=== PATIENT | female | born 1940 | race Caucasian/White ===

== ENCOUNTER 2024-02-12 09:34 | Emergency (ER) | payer MEDICARE, BC ==
[2024-02-12 09:42] VITALS: RESP 18
--- NOTE | 2024-02-12 10:08 | ED ---
General Adult HPI - General Chief complaint: Extremity Injury, Upper Stated complaint: L hand swelling Time Seen by Provider: 02/12/24 09:44 Source: patient, RN notes reviewed Mode of arrival: EMS Limitations: no limitations - History of Present Illness Initial comments: Patient is an 83-year-old female presenting from longterm with concern for left hand swelling. Patient cannot recall whether or not she had an injury. Patient feels she may have however is not certain. History is limited. Patient has no other areas of concern. - Related Data Allergies Allergy/AdvReac Type Severity Reaction Status Date / Time No Known Allergies Allergy Verified 02/12/24 09:41 Review of Systems ROS Statement: Those systems with pertinent positive or pertinent negative responses have been documented in the HPI. ROS Other: All systems not noted in ROS Statement are negative. Constitutional: Denies: fever Eyes: Denies: eye pain ENT: Denies: ear pain Respiratory: Denies: cough, dyspnea Cardiovascular: Denies: chest pain Gastrointestinal: Denies: abdominal pain Musculoskeletal: Reports: as per HPI Past Medical History Past Medical History: Unable to Obtain Past Surgical History: Unable to Obtain Past Psychological History: No Psychological Hx Reported Smoking Status: Never smoker Past Alcohol Use History: Unable to Obtain Past Drug Use History: Unable to Obtain General Exam Limitations: no limitations General appearance: alert, in no apparent distress Head exam: Present: normocephalic Eye exam: Present: normal appearance Neck exam: Present: normal inspection. Absent: tenderness Respiratory exam: Present: normal lung sounds bilaterally Cardiovascular Exam: Present: regular rate, normal rhythm Expanded Peripheral pulses: 2+: Radial (L) GI/Abdominal exam: Present: soft. Absent: tenderness Extremities exam: Present: other (Moderate tenderness proximal fourth metacarpal region. There is mild swelling. Distally the extremity is neurovascular intact) Back exam: Present: normal inspection Neurological exam: Present: alert. Absent: motor sensory deficit Psychiatric exam: Present: normal affect, normal mood Skin exam: Present: normal color. Absent: erythema Course Vital Signs 02/12/24 09:36 Temperature 98.0 F Pulse Rate 72 Respiratory 18 Rate Blood Pressure 144/75 O2 Sat by Pulse 95 Oximetry Medical Decision Making - Medical Decision Making Was pt. sent in by a medical professional or institution (, PA, LANGUAGE TEACHER, urgent care, hospital, or longterm...) When possible be specific @ -Patient was sent by nursing facility Did you speak to anyone other than the patient for history (EMS, parent, family, police, friend...)? What history was obtained from this source @ -No Did you review nursing and triage notes (agree or disagree)? Why? @ -I reviewed and agree with nursing and triage notes Were old charts reviewed (outside hosp., previous admission, EMS record, old EKG, old radiological studies, urgent care reports/EKG's, longterm records)? Report findings @ -Paperwork from nursing facility reviewed Differential Diagnosis (chest pain, altered mental status, abdominal pain women, abdominal pain men, vaginal bleeding, weakness, fever, dyspnea, syncope, headache, dizziness, GI bleed, back pain, seizure, CVA, palpatations, mental health, musculoskeletal)? @ -Differential Musculoskeletal Muscular strain, contusion, ligament sprain, fracture, arthritis, septic arthr itis, bursitis, cellulitis, muscle spasm, nerve compression, DVT, arterial occlusion, herpes zoster, electrolyte abnormality, tumor.... This is not meant to be in all inclusive list EKG interpreted by me (3pts min.). @ -As above X-rays interpreted by me (1pt min.). @ -X-ray left wrist and left hand reveal no acute abnormality CT interpreted by me (1pt min.). @ -None done U/S interpreted by me (1pt. min.). @ -None done What testing was considered but not performed or refused? (CT, X-rays, U/S, labs)? Why? @ -None What meds were considered but not given or refused? Why? @ -None Did you discuss the management of the patient with other professionals (professionals i.e. , PA, LANGUAGE TEACHER, lab, RT, psych nurse, social work administrator, truck driver supervisor, teacher, credit review officer, case supervisor)? Give summary @ -No Was smoking cessation discussed for >3mins.? @ -No Was critical care preformed (if so, how long)? @ -No Were there social determinants of health that impacted care today? How? (Homelessness, low income, unemployed, alcoholism, drug addiction, transportation, low edu. Level, literacy, decrease access to med. care, snf, rehab)? @ -No Was there de-escalation of care discussed even if they declined (Discuss DNR or withdrawal of care, Hospice)? DNR status @ -No What co-morbidities impacted this encounter? (DM, HTN, Smoking, COPD, CAD, Cancer, CVA, ARF, Chemo, Hep., AIDS, mental health diagnosis, sleep apnea, morbid obesity)? @ -None Was patient admitted / discharged? Hospital course, mention meds given and route, prescriptions, significant lab abnormalities, going to OR and other pertinent info. @ -Patient presents with wrist discomfort and swelling, undetermined etiology. Patient has localized tenderness to left proximal fourth metacarpal. Patient splinted and recommended follow-up. Undiagnosed new problem with uncertain prognosis? @ -No Drug Therapy requiring intensive monitoring for toxicity (Heparin, Nitro, Insulin, Cardizem)? @ -No Were any procedures done? @ -No Diagnosis/symptom? @ -Hand swelling Acute, or Chronic, or Acute on Chronic? @ -Acute Uncomplicated (without systemic symptoms) or Complicated (systemic symptoms)? @ -Complicated by unknown mechanism Side effects of treatment? @ -No Exacerbation, Progression, or Severe Exacerbation? @ -No Poses a threat to life or bodily function? How? (Chest pain, [place], [place], pneumonia, PE, COPD, DKA, ARF, appy, cholecystitis, CVA, Diverticulitis, Homicidal, Suicidal, threat to staff... and all critical care pts) @ -No Disposition Clinical Impression: Hand swelling Disposition: HOME SELF-CARE Condition: Stable Instructions (If sedation given, give patient instructions): Hand Sprain (ED) Additional Instructions: Please follow-up with primary care physician in the next day or 2 for recheck. If symptoms continue please also follow-up with orthopedics. Return for in creased pain, swelling, redness, fever, worsening or changing symptoms or other concerns. Ice to affected area. Is patient prescribed a controlled substance at d/c from ED?: No Referrals: Rodrick Watts MD [STAFF PHYSICIAN] - 1-2 days Gavin Mena DO [Doctor of Osteopathic Medicine] - 1-2 days Time of Disposition: 10:41
--- NOTE | 2024-02-12 10:27 | XR ---
EXAMINATION TYPE: XR hand complete LT DATE OF EXAM: 02/12/2024 COMPARISON: None HISTORY: Pain, swelling TECHNIQUE: 3 view left hand FINDINGS: No acute fracture or dislocation is evident. Diffuse narrowing of joint spaces is present. Mild soft tissue swelling is over the dorsum of the hand. Follow up exams can be performed 7-10 days from acute trauma for continued pain. IMPRESSION: 1. Diffuse soft tissue swelling. 2. Mild diffuse degenerative joint changes. 3. No acute osseous abnormality.
--- NOTE | 2024-02-12 10:29 | XR ---
EXAMINATION TYPE: XR wrist complete LT DATE OF EXAM: 02/12/2024 COMPARISON: 02/12/2024 HISTORY: Swelling TECHNIQUE: 4 view left wrist FINDINGS: No acute fracture or dislocation is evident. Joint spaces appear served. There is minimal d iffuse soft tissue swelling over the wrist. Follow up exams can be performed 7-10 days from acute trauma for continued pain. If there is pain at the anatomic snuff box, nuclear medicine bone scan can be performed for additional evaluation. IMPRESSION: 1. No acute osseous abnormality left wrist. 2. Minimal soft tissue swelling left wrist
[2024-02-12 11:05] VITALS: BP 136/70; PULSE 96; TEMP 98.4
--- NOTE | 2024-02-12 11:09 | ED ---
Disposition Clinical Impression: Hand swelling Disposition: HOME SELF-CARE Condition: Stable Instructions (If sedation given, give patient instructions): Hand Sprain (ED) Additional Instructions: Please follow-up with primary care physician in the next day or 2 for recheck. If symptoms continue please also follow-up with orthopedics. Return for increased pain, swelling, redness, fever, worsening or changing symptoms or other concerns. Ice to affected area. Is patient prescribed a controlled substance at d/c from ED?: No Referrals: Rodrick Watts MD [STAFF PHYSICIAN] - 1-2 days Gavin Mena DO [Doctor of Osteopathic Medicine] - 1-2 days Procedures - Orthopedic Splinting/Casting Injury #1 Side: left Upper Extremity Injury Location: short arm, wrist, hand Upper Extremity Immobilizer: volar splint
== END 2024-02-12 11:37 | disposition home or self-care (01) ==
LOC: EC 09:34
DX: M79.89 Other specified soft tissue disorders (principal)
CPT/HCPCS: 29125; 99284